=== PATIENT | male | born 1960 | race Caucasian/White ===

== ENCOUNTER 2024-09-14 19:33 | Inpatient (IN) | payer MEDICARE, OTHER ==
[~2024-09-14] VITALS: Ht 193 cm; Wt 104.2 kg
--- NOTE | 2024-09-14 19:48 | ED.PDOC ---
History of Present Illness HPI Comments 64 year old male presents to the ED via EMS with a chief complaint of generalized weakness onset 6 days. Patient was transferred from [facility] post acute due to generalized weakness for the past two weeks, positive UTI today as well as positive ESBL on urine culture. Patient states he is currently experiencing dizziness, abdominal tightness, weakness. He has a chronic Doran catheter due to urinary retention. PMHx a-fib, CHF. Denies chest pain, shortness of breath, nausea, vomiting, diarrhea, hematuria, fever, chills. No other symptoms or modifying factors present at this time. Time Seen by MD: 19:40 Reviewed Notes: Medications, Allergies Allergies: Coded Allergies: NO KNOWN ALLERGIES (Unverified , 09/14/24) Information Source: Patient Mode of Arrival: EMS Severity: Moderate Timing: Hours Duration: Since onset Prehospital treatment: None Vital Signs Vital Signs Date Time Temp Pulse Resp B/P (MAP) Pulse Ox O2 Delivery O2 Flow Rate FiO2 09/14/24 21:15 108 16 98 Room Air* 0 21 09/14/24 20:40 98.9 118/85 (96) 98.9 Physical Exam General: Awake, alert and oriented. No acute distress. Skin: Skin in warm, dry and intact. Appropriate color for ethnicity. HEENT: The head is normocephalic and atraumatic. Conjunctivae are clear without exudates or hemorrhage. Sclera is non-icteric. EOM are intact. No signs of nystagmus. Eyelids are normal in appearance without swelling or lesions. Oral mucosa is pink and moist Neck: The neck is supple with normal range of motion. No JVD. Cardiac: Heart rate and rhythm are normal. No murmurs, gallops, or rubs are auscultated. Respiratory: No signs of respiratory distress. Lung sounds are clear in all lobes bilaterally without rales, rhonchi, or wheezes. Abdominal: Abdomen is soft, positive suprapubic tenderness without distention. Bowel sounds are present and normoactive in all four quadrants. Extremities: Upper and lower extremities are atraumatic in appearance without deformity or edema. Neurological: The patient is awake, alert and oriented to person, place, and time with normal speech. Speech is clear. There is no facial asymmetry. Psychiatric: Appropriate mood and affect. Good judgement and insight. Review of Systems: REVIEW OF SYSTEMS: No fever, no chills, or fatigue, positive weight loss HEENT: No sore throat, no earache, no congestion, no neck pain. Cardiac: No chest pain. No palpitations. Lungs: No shortness of breath, no cough. GI: No nausea, no vomiting, no diarrhea, no constipation, no abdominal pain : No dysuria, frequency, or urgency. No hematuria. Musculoskeletal: No joint pain , no joint swelling, no extremity edema. Skin: No rash, no itching. Neuro: No headache, positive lightheadedness, positive generalized weakness Past Medical History PAST MEDICAL HISTORY: AFIB, CHF Surgical History: Denies all surgeries Family History Family History: Reviewed,noncontributory to illness, No family hx of Cancer, No family hx of DM, No family hx of Heart robel, No family hx of HTN, No family hx ofKidney robel, No family hx of Liver robel, No family hx of Lung robel, No family hx of Stroke Social History Smoker: Non-Smoker Alcohol: Denies ETOH Use Drugs: Denies Drug Use Lives In: Home Was a procedure done? Was a procedure done?: No Differential Dx Considerations may include: Differential diagnoses considered include: Abdominal aortic aneurysm, ND, esophageal rupture, intestinal obstruction, mesenteric ischemia, perforated viscus or solid organ rupture, CHF with hepatomegaly, pneumonia, abscess, appendicitis, biliary disease, diverticulitis, gastritis, gastroenteritis, hepatitis, hernia, inflammatory bowel disease, pancreatitis, peptic ulcer disease, urinary tract infection, ureteral colic, constipation, GERD, irritable syndrome, abdominal wall pain, nonspecific abdominal pain, herpes zoster. X-Ray, Labs, Meds, VS Vital Signs Date Time Temp Pulse Resp B/P (MAP) Pulse Ox O2 Delivery O2 Flow Rate FiO2 09/14/24 21:15 108 16 98 Room Air* 0 21 09/14/24 20:40 98.9 108 16 118/85 (96) 98 98.9 09/14/24 19:33 98.1 100 20 135/83 (100) 95 98.1 Lab Test 09/14/24 20:08 09/14/24 19:55 Range/Units Urine Color Yellow Yellow Urine Clarity Clear Clear Urine pH 6.0 5.0-9.0 Urine Specific [place] 1.012 1.001-1.035 Urine Protein Negative Negative Urine Ketones Negative Negative Urine Blood 2+ H Negative /uL Urine Nitrite Negative Negative Urine Bilirubin Negative Negative Urine Urobilinogen 2 H Negative mg/dL Urine Leukocyte Esterase 3+ Negative /uL Urine RBC 26 0 - 3 /hpf Urine Microscopic WBC 48 H 0-3 /HPF Urine Squamous Epithelial Cells Few <5 /hpf Urine Bacteria Few H None Seen /hpf Urine Mucus Few None Seen Urine Glucose 4+ H Normal mg/dL White Blood Count 11.5 H 4.4-10.8 10^3/uL Red Blood Count 5.07 4.5-5.90 10^6/uL Hemoglobin 14.9 13.5-17.5 g/dL Hematocrit 43.0 41.0-53.0 % Mean Corpuscular Volume 84.8 80.0-100.0 fL Mean Corpuscular Hemoglobin 29.4 28.0-32.0 pg Mean Corpuscular Hemoglobin Concent 34.7 32.0-36.0 g/dL Red Cell Distribution Width 14.6 H 11.8-14.3 % Platelet Count 351 140-450 10^3/uL Mean Platelet Volume 6.2 L 6.9-10.8 fL Neutrophils (%) (Auto) 76.2 37.0-80.0 % Lymphocytes (%) (Auto) 15.2 10.0-50.0 % Monocytes (%) (Auto) 7.2 0.0-12.0 % Eosinophils (%) (Auto) 0.9 0.0-7.0 % Basophils (%) (Auto) 0.5 0.0-2.0 % Neutrophils # (Auto) 8.7 H 1.6-8.6 10 ^3/uL Lymphocytes # (Auto) 1.7 0.4-5.4 10 ^3/uL Monocytes # (Auto) 0.8 0-1.3 10 ^3/uL Eosinophils # (Auto) 0.1 0-0.8 10 ^3/uL Basophils # (Auto) 0.1 0-0.2 10 ^3/uL Nucleated Red Blood Cells 0.1 % Sodium Level 137 136-145 mmol/L Potassium Level 4.0 3.5-5.1 mmol/L Chloride Level 97 L 98-107 mmol/L Carbon Dioxide Level 31 20-31 mmol/L Anion Gap 9 5-15 Blood Urea Nitrogen 12 9-23 mg/dL Creatinine 0.73 0.700-1.30 mg/dL Glomerular Filtration Rate Calc 100 >90 mL/min BUN/Creatinine Ratio 16.4 10.0-20.0 Serum Glucose 101 74-106 mg/dL Lactic Acid Level 1.3 0.4-2.0 mmol/L Calcium Level 10.4 8.7-10.4 mg/dL Total Bilirubin 1.0 0.2-1.0 mg/dL Aspartate Amino Transferase (AST) 23 13-40 U/L Alanine Aminotransferase (ALT) 22 7-40 U/L Alkaline Phosphatase 139 H 46-116 U/L Total Protein 7.0 5.7-8.2 g/dL Albumin 4.4 3.2-4.8 g/dL Current Medications Medications (Trade) Dose Ordered Sig/Sarah Route Start Time Stop Time Status Last Admin Sodium Chloride 1,000 ml @ 1,000 mls/hr Q1H ONCE IV 09/14/24 21:15 09/14/24 22:14 DC 09/14/24 21:43 Time of 1ST Reevaluation: 20:10 Reevaluation 1ST: Unchanged Patient Education/Counseling: Other (Need for admission) Family Education/Counseling: No Family Present Departure 1 Departure Time of Disposition: 00:19 Impression: Primary Impression: Urinary tract infection Additional Impression: Generalized weakness Disposition: ADMITTED INPATIENT Condition: Stable Comments 64-year-old male with generalized weakness and urinary tract infection. Patient's urine culture has been growing ESBL resistant bacteria. He has failed outpatient antibiotic Patient admitted to hospitalist service for further treatment, evaluation and monitoring. Extensive evaluation was performed in attempt to identify or rule out: (See differential diagnosis section) The following tests were ordered, and results were reviewed by me and discussed with patient: (See diagnostic results section) The following test were independently interpreted by me: N/A I reviewed and agreed with the following test results read by other providers: N/A I reviewed the following notes from the pt's past medical encounters: N/A Additional information was gathered from interviewing the following independent historians: N/A Discussion of management or test interpretation with external physician/other qualified health customer care voice consultant: Dr. Mcclain Addressed an acute or chronic illness that poses a threat to life or bodily function: Uncontrolled UTI Decision regarding hospitalization or escalation of hospital level of care: Risk and benefits of admission for further treatment of patient's condition was considered. Due to patient's current clinical condition, high risk of decline and poor outcome if discharged and need for further inpatient management and monitoring, patient will be admitted to the hospital. Drug therapy requiring intensive monitoring for toxicity: N/A Parenteral controlled substances: N/A Decision regarding elective major surgery with identified patient or procedure risk factors: N/A Decision regarding emergency major surgery: N/A Decision not to resuscitate or to de-escalate care because of poor prognosis: N/A Diagnosis or treatment significantly limited by social determinants of health: N/A Critical Care Note Critical Care Time?: No Stability Stability form required: No I personally scribed for VIOLET DING MD ([email or web address]) on 09/14/24 at 19:48. Electronically submitted by Lilo Gallagher ([email or web address]). VIOLET DING MD September 14, 2024 19:48
[2024-09-14 20:17] LABS: Basophils # (auto) 0.1 10 ^3/uL (0-0.2); Basophils % (auto) 0.5 % (0.0-2.0); Eosinophils # (auto) 0.1 10 ^3/uL (0-0.8); Eosinophils % (auto) 0.9 % (0.0-7.0); Hemoglobin 14.9 g/dL (13.5-17.5); Lymphocytes # (auto) 1.7 10 ^3/uL (0.4-5.4); Lymphocytes % (auto) 15.2 % (10.0-50.0); Mean Corpuscular Hemoglobin 29.4 pg (28.0-32.0); Mean Corpuscular Hgb Conc. 34.7 g/dL (32.0-36.0); Mean Corpuscular Volume 84.8 fL (80.0-100.0); Monocytes # (auto) 0.8 10 ^3/uL (0-1.3); Monocytes % (auto) 7.2 % (0.0-12.0); Neutrophils # (auto) 8.7 10 ^3/uL (1.6-8.6); Neutrophils % (auto) 76.2 % (37.0-80.0); Nucleated Red Blood Cells % 0.1 %; Platelet Count (auto) 351 10^3/uL (140-450); Red Blood Cells 5.07 10^6/uL (4.5-5.90); Red Cell Distribution Width 14.6 % (11.8-14.3); White Blood Cell 11.5 10^3/uL (4.4-10.8)
[2024-09-14 20:22] LABS: Urine Bacteria FEW /hpf (None Seen); Urine Blood 2+ /uL (Negative); Urine Clarity Clear (Clear); Urine Color Yellow (Yellow); Urine Mucus FEW (None Seen); Urine Protein, UAD Negative (Negative); Urine Specific Gravity 1.012 (1.001-1.035); Urine Squamous Epithelial Cell FEW /hpf (<5); Urine Urobilinogen 2 mg/dL (Negative); Urine WBC 48 /HPF (0-3)
[2024-09-14 20:31] LABS: Alanine Aminotransferase 22 U/L (7-40); Albumin 4.4 g/dL (3.2-4.8); Anion Gap 9 (5-15); Aspartate Aminotransferase 23 U/L (13-40); BUN/Creatinine Ratio 16.4 (10.0-20.0); Blood Urea Nitrogen 12 mg/dL (9-23); Carbon Dioxide 31 mmol/L (20-31); Glucose 101 mg/dL (74-106); Sodium 137 mmol/L (136-145)
[2024-09-14 20:34] LABS: Alkaline Phosphatase 139 U/L (46-116); Calcium 10.4 mg/dL (8.7-10.4); Chloride 97 mmol/L (98-107)
[2024-09-14 21:15] VITALS: PULSE 108; RESP 16; O2SAT 98
[2024-09-14] MEDS ORDERED: MORPHINE SULFATE INJ 2 MG/ml SYRG IV PRN (21:30)
[2024-09-14] MEDS ORDERED: NITROGLYCERIN 0.4 MG SL TAB SL PRN (21:30)
--- NOTE | 2024-09-14 21:35 | DVHHP2 ---
Admitting Diagnosis: uti/sepsis with uti, failure to thrive History of Present Illness HPI 64 year old male presents to the ED via EMS with a chief complaint of generalized weakness onset 6 days. Patient was transferred from [facility] post acute due to generalized weakness for the past two weeks, positive UTI today as well as positive ESBL on urine culture. Patient states he is currently experiencing dizziness, abdominal tightness, weakness. He has a chronic Doran catheter due to urinary retention. PMHx a-fib, CHF. Denies chest pain, shortness of breath, nausea, vomiting, diarrhea, hematuria, fever, chills. No other symptoms or modifying factors present at this time. Home Meds No Active Prescriptions or Reported Meds Review of Systems Constitutional: No symptom reported Ears, Nose, & Throat: No symptom reported Eyes: No symptom reported Pulmonary/Respiratory: No symptom reported Cardiovascular: No symptom reported Gastrointestinal: No symptom reported H&P Exam Vital Signs Vital Signs Date Time Temp Pulse Resp B/P (MAP) Pulse Ox O2 Delivery O2 Flow Rate FiO2 09/14/24 21:15 108 16 98 Room Air* 0 21 09/14/24 20:40 98.9 118/85 (96) 98.9 General Appeara: Thin Nasal Exam: Normal inspection Abdominal Exam: Normal bowel sounds Labs/Xrays Labs Test 09/14/24 20:08 09/14/24 19:55 Range/Units Urine Color Yellow Yellow Urine Clarity Clear Clear Urine pH 6.0 5.0-9.0 Urine Specific [place] 1.012 1.001-1.035 Urine Protein Negative Negative Urine Ketones Negative Negative Urine Blood 2+ H Negative /uL Urine Nitrite Negative Negative Urine Bilirubin Negative Negative Urine Urobilinogen 2 H Negative mg/dL Urine Leukocyte Esterase 3+ Negative /uL Urine RBC 26 0 - 3 /hpf Urine Microscopic WBC 48 H 0-3 /HPF Urine Squamous Epithelial Cells Few <5 /hpf Urine Bacteria Few H None Seen /hpf Urine Mucus Few None Seen Urine Glucose 4+ H Normal mg/dL White Blood Count 11.5 H 4.4-10.8 10^3/uL Red Blood Count 5.07 4.5-5.90 10^6/uL Hemoglobin 14.9 13.5-17.5 g/dL Hematocrit 43.0 41.0-53.0 % Mean Corpuscular Volume 84.8 80.0-100.0 fL Mean Corpuscular Hemoglobin 29.4 28.0-32.0 pg Mean Corpuscular Hemoglobin Concent 34.7 32.0-36.0 g/dL Red Cell Distribution Width 14.6 H 11.8-14.3 % Platelet Count 351 140-450 10^3/uL Mean Platelet Volume 6.2 L 6.9-10.8 fL Neutrophils (%) (Auto) 76.2 37.0-80.0 % Lymphocytes (%) (Auto) 15.2 10.0-50.0 % Monocytes (%) (Auto) 7.2 0.0-12.0 % Eosinophils (%) (Auto) 0.9 0.0-7.0 % Basophils (%) (Auto) 0.5 0.0-2.0 % Neutrophils # (Auto) 8.7 H 1.6-8.6 10 ^3/uL Lymphocytes # (Auto) 1.7 0.4-5.4 10 ^3/uL Monocytes # (Auto) 0.8 0-1.3 10 ^3/uL Eosinophils # (Auto) 0.1 0-0.8 10 ^3/uL Basophils # (Auto) 0.1 0-0.2 10 ^3/uL Nucleated Red Blood Cells 0.1 % Sodium Level 137 136-145 mmol/L Potassium Level 4.0 3.5-5.1 mmol/L Chloride Level 97 L 98-107 mmol/L Carbon Dioxide Level 31 20-31 mmol/L Anion Gap 9 5-15 Blood Urea Nitrogen 12 9-23 mg/dL Creatinine 0.73 0.700-1.30 mg/dL Glomerular Filtration Rate Calc 100 >90 mL/min BUN/Creatinine Ratio 16.4 10.0-20.0 Serum Glucose 101 74-106 mg/dL Lactic Acid Level 1.3 0.4-2.0 mmol/L Calcium Level 10.4 8.7-10.4 mg/dL Total Bilirubin 1.0 0.2-1.0 mg/dL Aspartate Amino Transferase (AST) 23 13-40 U/L Alanine Aminotransferase (ALT) 22 7-40 U/L Alkaline Phosphatase 139 H 46-116 U/L Total Protein 7.0 5.7-8.2 g/dL Albumin 4.4 3.2-4.8 g/dL Assessment/Plan Primary Diagnosis sepsis with UTI (ESBL) failure to thrive chronic systolic heart failure: echo afib: ekg, tele bph gallstones admitted to med/surg consult as appropriate PT/OT Plan discussed with: Patient PRIYA BARLOW DO September 14, 2024 21:35
[2024-09-14] MEDS: SODIUM CHLORIDE 0.9% 1,000 ML IV ONE (21:43)
[2024-09-14 22:29] LABS: COVID19 ANTIGEN SOFIA FIA NEGATIVE (NEGATIVE); Rapid Influenza A Negative (Negative); Rapid Influenza B Negative (Negative)
[2024-09-15 04:11] LABS: Basophils # (auto) 0 10 ^3/uL (0-0.2); Basophils % (auto) 0.5 % (0.0-2.0); Eosinophils # (auto) 0.2 10 ^3/uL (0-0.8); Hematocrit 43.8 % (41.0-53.0); Hemoglobin 14.7 g/dL (13.5-17.5); Lymphocytes % (auto) 21.9 % (10.0-50.0); Mean Corpuscular Hemoglobin 28.5 pg (28.0-32.0); Mean Corpuscular Hgb Conc. 33.5 g/dL (32.0-36.0); Monocytes # (auto) 0.6 10 ^3/uL (0-1.3); Monocytes % (auto) 6.8 % (0.0-12.0); Neutrophils # (auto) 6.4 10 ^3/uL (1.6-8.6); Neutrophils % (auto) 68.8 % (37.0-80.0); Nucleated Red Blood Cells % 0.1 %; Platelet Count (auto) 360 10^3/uL (140-450); Red Blood Cells 5.16 10^6/uL (4.5-5.90); Red Cell Distribution Width 14.8 % (11.8-14.3); White Blood Cell 9.3 10^3/uL (4.4-10.8)
[2024-09-15] MEDS: HYDROcodone-ACET 5/325MG TAB PO PRN (08:03)
[2024-09-15] MEDS: ENOXAPARIN SOD 40 MG/0.4 ML SYRINGE SC SCH (08:07)
[2024-09-15] MEDS: cefTRIAXone 1GM/50ML D5W 50 ML IV SCH (09:57)
--- NOTE | 2024-09-15 12:53 | DVH ---
EXAM: CT CT AB PEL WO CON-NO ORAL OR IV HISTORY: Lower abdominal pain, urinary tract infection COMPARISON: None TECHNIQUE: Helical CT images of the abdomen and pelvis were performed without IV contrast. Sagittal a nd coronal reformatted images were obtained. This CT exam was performed using one or more of the foll owing dose reduction techniques: Automated exposure control, adjustment of the mA and/or kv according to patient size, or the use of iterative reconstruction techniques. Radiation Dose: Abdomen/Pelvis: CTDIvol 21.31 mGy, DLP 1357.79 mGy*cm. FINDINGS: CT abdomen: There is a small left pleural effusion. There is partial consolidation of the left lower lobe, not fully imaged here. The heart is borderline enlarged. There are coronary artery calcificatio ns. There is a 3.2 cm gallstone (image 25, series 5). The noncontrast liver, spleen, pancreas, kidney s, and adrenal glands are unremarkable. No abdominal aortic aneurysm. There is a small distal duodena l diverticulum. CT pelvis: No abnormal bowel dilatation, free air, or free fluid. There is fecal retention in the col on. The appendix is not definitely visualized, and there is no specific evidence of acute appendiciti s. Doran catheter decompresses the urinary bladder. The prostate is moderately enlarged. There are small bilateral fatty inguinal indirect hernias. There are bilateral sacroiliac degenerative changes with bridging osteophytes anteriorly on both sides. There is advanced lumbar degenerative disc diseas e and facet arthropathy with multilevel significant neural foraminal stenosis bilaterally. There is m ild osteoarthritis of the hips. IMPRESSION: 1. Small left pleural effusion with left lower lobe partial consolidation which may be due to scarrin g, pneumonia, or atelectasis. Comparison with previous imaging would be necessary to make this disti nction. 2. Coronary artery disease and Borderline cardiomegaly. 3. Cholelithiasis. 4. Fecal retention in the colon suggestive of constipation. 5. Moderate prostatic enlargement. Doran catheter decompresses the urinary bladder. 6. Advanced lumbar degenerative disc disease and facet arthropathy with multilevel significant neural foraminal stenosis bilaterally. This would be better characterized with noncontrast MRI of the lumb ar spine on an outpatient nonemergent basis, especially if the patient complains of lower extremity r adicular symptoms. 7. No evidence of bowel obstruction or other acute process in the abdomen or pelvis.
[2024-09-15] MEDS ORDERED: DOCUSATE SOD 100 MG CAP PO PRN (13:30)
--- NOTE | 2024-09-15 13:33 | DVHPN2 ---
Progress Note Date Seen: September 15, 2024 Medical Necessity Reason Pt with a Central, PICC or Fol: Yes The following are medically ne: Stevens Catheter Reason for stevens catheter: Bladder Retention/Obstruc, Strict I&O Subjective Patient reports: No new complaints Review of Systems: HEENT:Normal, CVS:Normal, RESPIRATORY:Normal, GI:Normal, :Normal, MSK:Normal, NEURO:Normal Objective vital signs Vital Sign Date Time Temp Pulse Resp B/P (MAP) Pulse Ox O2 Delivery O2 Flow Rate FiO2 09/15/24 12:00 86 13 123/84 (97) 96 09/15/24 07:39 Room Air* 0 21 09/15/24 07:39 97.7 97.7 Total Intake and Output 09/14/24 09/14/24 09/15/24 15:00 23:00 07:00 Intake Total 1000 ml Balance 1000 ml medications Current Medications Medications Dose Ordered Sig/Sarah Route Start Time Stop Time Status Last Admin Dose Admin Acetaminophen/ Hydrocodone Bitart 1 tab Q4HP PRN PO 09/14/24 21:30 09/15/24 08:03 1 TAB Acetaminophen 650 mg Q6HP PRN PO 09/14/24 21:30 Morphine Sulfate 2 mg Q4HPRN PRN IV 09/14/24 21:30 Enoxaparin Sodium 40 mg DAILY SC 09/15/24 08:00 09/15/24 08:07 40 MG Nitroglycerin 0.4 mg Q5MINP PRN SL 09/14/24 21:30 Morphine Sulfate 2 mg Q30M PRN IV 09/14/24 21:30 Ceftriaxone Sodium 50 ml @ 100 mls/hr DAILY IV 09/15/24 10:00 09/15/24 09:57 100 MLS/HR Examination: GENERAL:Normal, HEENT:Normal, NECK:Normal, LUNGS:Normal, CVS:Normal, ABDOMEN:Normal, MSK:Normal, SKIN:Normal, NEURO:Normal, :Normal laboratory and microbiology Laboratory Tests 09/15/24 03:39 09/14/24 19:55 Test 09/14/24 19:55 Range/Units Serum Glucose 101 74-106 mg/dL Problem List/Assessment/Plan Problem List/Assessment/Plan #1 ? sepsis with uti ? esbl: iv invanz, change stevens #2 chronic systolic heart failure: echo #3 ? afib: ekg, tele #4 bph #5 gallstones advance care planning- full code- time spent 19 mins Plan discussed with: Patient Date of Service: September 15, 2024 Billing Provider: PERLITA MOORE MD Common Visit Codes: [id number] INP/OBS CARE(HIGH) Secondary Visit Codes: [id number] CARE PLAN 30 MINUTES PERLITA MOORE MD September 15, 2024 13:33
--- NOTE | 2024-09-15 13:56 | DVH ---
EXAM: XY CHEST PORTABLE Indication: chf Technique: Single frontal view of the chest was obtained Comparison: None FINDINGS: Lines and Tubes: None Lungs: No focal consolidation. Pleura: Small left pleural effusion. No pneumothorax. Cardiomediastinal contours: Cardiomegaly Bones: No acute osseous abnormality. IMPRESSION: Cardiomegaly with small left pleural effusion
[2024-09-15] MEDS: ERTAPENEM SOD INJ 1 GM in SODIUM CHL 0.9% 50 ML IV ONE (14:00)
[2024-09-15 17:23] VITALS: BP 128/83; PULSE 101; RESP 20; TEMP 97.4; O2SAT 94
[2024-09-15 17:58] VITALS: PULSE 101; RESP 20; O2SAT 94
[2024-09-15 21:00] VITALS: BP 121/81; PULSE 101; RESP 17; TEMP 97.6; O2SAT 96
[2024-09-15] MEDS: ACETAMINOPHEN 325 MG TAB PO PRN (23:18)
[2024-09-15] MEDS: CARVEDILOL 3.125 MG TAB PO SCH (23:21)
[2024-09-16] VITALS (8 sets, daily range): BP systolic 101–142; BP diastolic 67–94; PULSE 54–109; RESP 12–21; TEMP 97.5–98.4; O2SAT 97–98
[2024-09-16 05:18] LABS: Basophils # (auto) 0.1 10 ^3/uL (0-0.2); Eosinophils # (auto) 0.2 10 ^3/uL (0-0.8); Eosinophils % (auto) 2.1 % (0.0-7.0); Hematocrit 42.4 % (41.0-53.0); Hemoglobin 14.5 g/dL (13.5-17.5); Lymphocytes # (auto) 1.8 10 ^3/uL (0.4-5.4); Lymphocytes % (auto) 21.2 % (10.0-50.0); Mean Corpuscular Hemoglobin 28.8 pg (28.0-32.0); Mean Corpuscular Hgb Conc. 34.1 g/dL (32.0-36.0); Mean Corpuscular Volume 84.6 fL (80.0-100.0); Monocytes # (auto) 0.7 10 ^3/uL (0-1.3); Monocytes % (auto) 7.6 % (0.0-12.0); Neutrophils % (auto) 68.1 % (37.0-80.0); Platelet Count (auto) 350 10^3/uL (140-450); Red Blood Cells 5.01 10^6/uL (4.5-5.90); Red Cell Distribution Width 14.3 % (11.8-14.3); White Blood Cell 8.7 10^3/uL (4.4-10.8)
[2024-09-16 05:42] LABS: Alanine Aminotransferase 14 U/L (7-40); Albumin 4.1 g/dL (3.2-4.8); Alkaline Phosphatase 105 U/L (46-116); Anion Gap 10 (5-15); Aspartate Aminotransferase 16 U/L (13-40); BUN/Creatinine Ratio 17.5 (10.0-20.0); Bilirubin, Total 0.8 mg/dL (0.2-1.0); Blood Urea Nitrogen 11 mg/dL (9-23); Calcium 9.5 mg/dL (8.7-10.4); Carbon Dioxide 28 mmol/L (20-31); Chloride 101 mmol/L (98-107); Glucose 94 mg/dL (74-106); Potassium 3.7 mmol/L (3.5-5.1); Sodium 139 mmol/L (136-145); Total Protein 6.7 g/dL (5.7-8.2)
[2024-09-16 06:07] LABS: INR 1.09 (0.9-1.15); Partial Thromboplastin Time 33.9 SEC (24.5-34.5); Prothrombin Time 11.5 sec (9.3-11.8)
[2024-09-16] MEDS: MORPHINE SULFATE INJ 2 MG/ml SYRG IV PRN (09:38)
[2024-09-16] MEDS: ASPirin 81 mg TAB PO SCH (09:40)
[2024-09-16] MEDS: ERTAPENEM SOD INJ 1 GM in SODIUM CHL 0.9% 50 ML IV SCH (09:43)
[2024-09-16 10:16] LABS: Hepatitis B Surface Antigen Negative (Negative)
[2024-09-16 10:40] LABS: Hepatitis A Ab IgM Negative; Hepatitis B Core IgM Negative (Negative); Hepatitis C Antibody Negative (Negative)
[2024-09-16] MEDS ORDERED: SENNA 8.6 MG TAB PO PRN (14:15)
[2024-09-17] VITALS (8 sets, daily range): BP systolic 107–142; BP diastolic 65–88; PULSE 80–102; RESP 17–20; TEMP 97.5–98.5; O2SAT 96–98
[2024-09-17 05:45] LABS: Urine Bacteria None Seen /hpf (None Seen)
[2024-09-17 05:50] LABS: Urine Blood 1+ /uL (Negative); Urine Budding Yeast OCCASIONAL /hpf (None Seen); Urine Clarity Clear (Clear); Urine Color Yellow (Yellow); Urine Mucus FEW (None Seen); Urine Protein, UAD Negative (Negative); Urine Specific Gravity 1.022 (1.001-1.035); Urine Squamous Epithelial Cell None Seen /hpf (<5); Urine Urobilinogen 4 mg/dL (Negative); Urine WBC 9 /HPF (0-3)
--- NOTE | 2024-09-17 13:12 | DVHPN2 ---
Assessment/Plan My Orders Orders - SREEDHAR LOPEZ MD Procedure Category Date Status Time Senna Pod Tablet PHA 09/16/24 In Process (Senokot Tablet) 14:15 Polyethylene Glycol PHA 09/16/24 In Process 17g Powder (Miralax 14:15 Date of Service: September 16, 2024 Billing Provider: SREEDHAR LOPEZ MD Common Visit Codes: [id number] INP/OBS CARE(HIGH) SREEDHAR LOPEZ MD September 17, 2024 13:12
--- NOTE | 2024-09-17 13:13 | DVHPN2 ---
Assessment/Plan My Orders Orders - SREEDHAR LOPEZ MD Procedure Category Date Status Time Senna Pod Tablet PHA 09/16/24 In Process (Senokot Tablet) 14:15 Polyethylene Glycol PHA 09/16/24 In Process 17g Powder (Miralax 14:15 Date of Service: September 17, 2024 SREEDHAR LOPEZ MD September 17, 2024 13:13
[2024-09-17] MEDS ORDERED: VANCOMYCIN PER PHARMACY 0 MG IV SCH (13:15)
--- NOTE | 2024-09-17 14:45 | DVHPN2 ---
Subjective less confused, no complaints, pending cult and sens Changes from previous H/P or p: No Changes Objective Vitals Vital Signs Date Time Temp Pulse Resp B/P (MAP) Pulse Ox O2 Delivery O2 Flow Rate FiO2 09/17/24 14:34 86 18 112/75 09/17/24 14:32 98.0 09/17/24 12:10 96 09/17/24 08:05 Room Air* 0 21 Intake/Output Intake and Output 09/17/24 07:00 Intake Total 1500 ml Output Total 1500 ml Balance 0 ml Intake Oral 1500 ml Output Urine Total 1500 ml Medications Current Medications Medications Dose Ordered Sig/Sarah Route Start Time Stop Time Status Last Admin Dose Admin Acetaminophen/ Hydrocodone Bitart 1 tab Q4HP PRN PO 09/14/24 21:30 09/17/24 04:08 1 TAB Acetaminophen 650 mg Q6HP PRN PO 09/14/24 21:30 09/17/24 14:32 650 MG Morphine Sulfate 2 mg Q4HPRN PRN IV 09/14/24 21:30 09/17/24 14:34 2 MG Enoxaparin Sodium 40 mg DAILY SC 09/15/24 08:00 09/17/24 09:28 40 MG Nitroglycerin 0.4 mg Q5MINP PRN SL 09/14/24 21:30 Morphine Sulfate 2 mg Q30M PRN IV 09/14/24 21:30 Ertapenem 1 gm/ Sodium Chloride 50 ml @ 100 mls/hr DAILY IV 09/16/24 10:00 09/17/24 09:29 100 MLS/HR Aspirin 81 mg DAILY PO 09/16/24 10:00 09/17/24 09:28 81 MG Carvedilol 3.125 mg Q12HR PO 09/15/24 22:00 09/17/24 09:29 3.125 MG Sennosides 8.6 mg QHSP PRN PO 09/16/24 14:15 Polyethylene Glycol 17 gm DAILYPRN PRN PO 09/16/24 14:15 Vancomycin HCl 0 ml @ 0 mls/hr UD IV 09/17/24 13:15 Vancomycin HCl 200 ml @ 160 mls/hr Q12H IV 09/17/24 15:00 Laboratory Results Laboratory Tests 09/16/24 04:50 Urinalysis Test 09/17/24 05:30 Urine Color Yellow (Yellow) Urine Clarity Clear (Clear) Urine pH 6.0 (5.0-9.0) Urine Specific [place] 1.022 (1.001-1.035) Urine Protein Negative (Negative) Urine Ketones Negative (Negative) Urine Blood 1+ /uL (Negative) H Urine Nitrite Negative (Negative) Urine Bilirubin Negative (Negative) Urine Urobilinogen 4 mg/dL (Negative) H Urine Leukocyte Esterase 1+ /uL (Negative) Urine RBC 94 /hpf (0 - 3) Urine Microscopic WBC 9 /HPF (0-3) H Urine Squamous Epithelial Cells None seen /hpf (<5) Urine Bacteria None seen /hpf (None Seen) Urine Mucus Few (None Seen) Urine Yeast (Budding) Occasional /hpf (None Urine Glucose 3+ mg/dL (Normal) H Microbiology Microbiology Date/Time Source Procedure Growth Status 09/14/24 20:08 Urine - [place] Urine Culture - Preliminary Resulted 09/14/24 19:55 Blood Blood Culture - Preliminary NO GROWTH AFTER 48 HOURS OF INCUBATION. Resulted Assessment/Plan Assessment/Plan #1 ? sepsis with uti ? esbl: iv invanz, change stevens #2 chronic systolic heart failure: echo #3 ? afib: ekg, tele #4 bph #5 gallstones advance care planning- full code- time spent 19 mins Plan discussed with: Patient My Orders Orders - SEREDHAR LOPEZ MD Procedure Category Date Status Time Vancomycin Per PHA 09/17/24 In Process Pharmacy 13:15 Vancomycin 1gm/200ml PHA 09/17/24 In Process Pm 15:00 Complete Blood Count LAB 09/18/24 Verified 04:00 Creatinine LAB 09/18/24 Verified 04:00 Vancomycin,Trough LAB 09/19/24 Verified 02:00 Vancomycin Per BIJAN 09/17/24 In Process Pharmacy Protoc 13:58 Date of Service: September 16, 2024 Billing Provider: SREEDHAR LOPEZ MD Common Visit Codes: [id number] INP/OBS CARE(HIGH) SREEDHAR LOPEZ MD September 17, 2024 14:45
--- NOTE | 2024-09-17 14:46 | DVHPN2 ---
Subjective aox4. urine with 20kcfu of enterococcus, pending sens, adding vanc to cover Changes from previous H/P or p: No Changes Objective Vitals Vital Signs Date Time Temp Pulse Resp B/P (MAP) Pulse Ox O2 Delivery O2 Flow Rate FiO2 09/17/24 14:34 86 18 112/75 09/17/24 14:32 98.0 09/17/24 12:10 96 09/17/24 08:05 Room Air* 0 21 Intake/Output Intake and Output 09/17/24 07:00 Intake Total 1500 ml Output Total 1500 ml Balance 0 ml Intake Oral 1500 ml Output Urine Total 1500 ml Medications Current Medications Medications Dose Ordered Sig/Sarah Route Start Time Stop Time Status Last Admin Dose Admin Acetaminophen/ Hydrocodone Bitart 1 tab Q4HP PRN PO 09/14/24 21:30 09/17/24 04:08 1 TAB Acetaminophen 650 mg Q6HP PRN PO 09/14/24 21:30 09/17/24 14:32 650 MG Morphine Sulfate 2 mg Q4HPRN PRN IV 09/14/24 21:30 09/17/24 14:34 2 MG Enoxaparin Sodium 40 mg DAILY SC 09/15/24 08:00 09/17/24 09:28 40 MG Nitroglycerin 0.4 mg Q5MINP PRN SL 09/14/24 21:30 Morphine Sulfate 2 mg Q30M PRN IV 09/14/24 21:30 Ertapenem 1 gm/ Sodium Chloride 50 ml @ 100 mls/hr DAILY IV 09/16/24 10:00 09/17/24 09:29 100 MLS/HR Aspirin 81 mg DAILY PO 09/16/24 10:00 09/17/24 09:28 81 MG Carvedilol 3.125 mg Q12HR PO 09/15/24 22:00 09/17/24 09:29 3.125 MG Sennosides 8.6 mg QHSP PRN PO 09/16/24 14:15 Polyethylene Glycol 17 gm DAILYPRN PRN PO 09/16/24 14:15 Vancomycin HCl 0 ml @ 0 mls/hr UD IV 09/17/24 13:15 Vancomycin HCl 200 ml @ 160 mls/hr Q12H IV 09/17/24 15:00 Laboratory Results Laboratory Tests 09/16/24 04:50 Urinalysis Test 09/17/24 05:30 Urine Color Yellow (Yellow) Urine Clarity Clear (Clear) Urine pH 6.0 (5.0-9.0) Urine Specific [place] 1.022 (1.001-1.035) Urine Protein Negative (Negative) Urine Ketones Negative (Negative) Urine Blood 1+ /uL (Negative) H Urine Nitrite Negative (Negative) Urine Bilirubin Negative (Negative) Urine Urobilinogen 4 mg/dL (Negative) H Urine Leukocyte Esterase 1+ /uL (Negative) Urine RBC 94 /hpf (0 - 3) Urine Microscopic WBC 9 /HPF (0-3) H Urine Squamous Epithelial Cells None seen /hpf (<5) Urine Bacteria None seen /hpf (None Seen) Urine Mucus Few (None Seen) Urine Yeast (Budding) Occasional /hpf (None Urine Glucose 3+ mg/dL (Normal) H Microbiology Microbiology Date/Time Source Procedure Growth Status 09/14/24 20:08 Urine - [place] Urine Culture - Preliminary Resulted 09/14/24 19:55 Blood Blood Culture - Preliminary NO GROWTH AFTER 48 HOURS OF INCUBATION. Resulted Assessment/Plan Assessment/Plan #1 ? sepsis with uti ? esbl: iv invanz, change stevens, enterococcus, adding vanc #2 chronic systolic heart failure: echo #3 ? afib: ekg, tele #4 bph #5 gallstones advance care planning- full code- time spent 19 mins Plan discussed with: Patient My Orders Orders - SREEDHAR LOPEZ MD Procedure Category Date Status Time Vancomycin Per PHA 09/17/24 In Process Pharmacy 13:15 Vancomycin 1gm/200ml PHA 09/17/24 In Process Pm 15:00 Complete Blood Count LAB 09/18/24 Verified 04:00 Creatinine LAB 09/18/24 Verified 04:00 Vancomycin,Trough LAB 09/19/24 Verified 02:00 Vancomycin Per BIJAN 09/17/24 In Process Pharmacy Protoc 13:58 Date of Service: September 17, 2024 Billing Provider: SREEDHAR LOPEZ MD Common Visit Codes: [id number] INP/OBS CARE(HIGH) SREEDHAR LOPEZ MD September 17, 2024 14:46
[2024-09-17] MEDS: VANCOMYCIN 1GM/200ML PM 200 ML IV SCH (14:48)
--- NOTE | 2024-09-17 17:36 | DVHSR ---
APPROVED REPORT EXAM: Two-dimensional and M-mode echocardiogram with Doppler and color Doppler. Blood Pressure: 124/94 mmHg INDICATION chf RISK FACTORS Obesity: Height: 6'4, Weight: 213 DIMENSIONS LVDd4.8 (3.8-5.7cm)LA (2D)4.0 (1.9-4.0cm)Aortic Root3.5 (2.0-3.7cm) LVDs3.6 (2.5-4.0cm)LA (MM) (1.9-4.0cm)Aortic Cusp Exc2.0 (1.5-2.0cm) EF (%) 48.0 (55-70%)Rt. Atrium (1.9-4.0cm)Asc. Aorta3.4 cm IVSd1.1 (0.7-1.1cm)RV (D) (1.8-2.4cm) PWd1.1 (0.7-1.1cm) Mitral Valve MitralMitral Stenosis E wave0.81m/sMV Mean GR.1mmHg A wavem/sMV Peak GR.3mmHg E/A ratio0.02D MVAcm2 DECEL [id number] 1/2 [place] Aortic Valve Aortic ValveAortic Stenosis V10.84m/Osvaldo Mean GR.mmHg V20.99m/[place]valdo Peak GR.4mmHg LVOT Diameter2.7 (1.8-2.4cm)Doppler AVA4.86cm2 Pulmonic Valve V20.87m/s Other Information Quality : Technically LimitedRhythm : Technically limited study due to patient position.body habitus. Conclusion MILD LVH AND MILD LV DIASTOLIC DYSFUNCTION MILD LV GLOBAL HYPOKINESIS LV EF IS 45% AND IS BORDERLINE REDUCED MODRATELY DILATED RV AND RA DSKINESIS OF IVS RV HYPOKINETIC STUDY REVEAL BORDERLINE DILATED CARDIOMYOPATHY SYSTOLIC AND DIASTOLIC LV DYSFUNCTION NORMAL VALVES NO EFFUSION
[2024-09-18] VITALS (10 sets, daily range): BP systolic 104–129; BP diastolic 69–97; PULSE 83–102; RESP 18; TEMP 97.5–98.2; O2SAT 93–97
[2024-09-18 06:44] LABS: Basophils # (auto) 0.1 10 ^3/uL (0-0.2); Basophils % (auto) 1.5 % (0.0-2.0); Eosinophils # (auto) 0.2 10 ^3/uL (0-0.8); Eosinophils % (auto) 2.6 % (0.0-7.0); Hematocrit 43.3 % (41.0-53.0); Hemoglobin 14.6 g/dL (13.5-17.5); Lymphocytes # (auto) 2.2 10 ^3/uL (0.4-5.4); Lymphocytes % (auto) 24.3 % (10.0-50.0); Mean Corpuscular Hemoglobin 28.9 pg (28.0-32.0); Mean Corpuscular Hgb Conc. 33.8 g/dL (32.0-36.0); Mean Corpuscular Volume 85.6 fL (80.0-100.0); Monocytes # (auto) 0.6 10 ^3/uL (0-1.3); Monocytes % (auto) 6.6 % (0.0-12.0); Nucleated Red Blood Cells % 0.1 %; Platelet Count (auto) 328 10^3/uL (140-450); Red Blood Cells 5.06 10^6/uL (4.5-5.90); Red Cell Distribution Width 14.8 % (11.8-14.3); White Blood Cell 9.2 10^3/uL (4.4-10.8)
[2024-09-18 06:53] LABS: Chloride 106 mmol/L (98-107); Potassium 4.2 mmol/L (3.5-5.1); Sodium 140 mmol/L (136-145)
[2024-09-18 06:54] LABS: Anion Gap 9 (5-15); Carbon Dioxide 25 mmol/L (20-31)
[2024-09-18 06:55] LABS: Calcium 9.4 mg/dL (8.7-10.4)
[2024-09-18 06:59] LABS: BUN/Creatinine Ratio 19.7 (10.0-20.0); Blood Urea Nitrogen 12 mg/dL (9-23); Glucose 87 mg/dL (74-106)
[2024-09-18] MEDS: POLYETHYLENE GLYCOL 17 GM PWDR PO PRN (15:59)
--- NOTE | 2024-09-18 17:45 | DVHPN2 ---
Subjective carbapenem restant citrobacter and enterococcus. starting avicaz and c/w vanc. midline, plan for home iv abx Changes from previous H/P or p: No Changes Objective Vitals Vital Signs Date Time Temp Pulse Resp B/P (MAP) Pulse Ox O2 Delivery O2 Flow Rate FiO2 09/18/24 14:09 98.9 09/18/24 13:40 89 16 102/54 09/18/24 13:00 93 09/18/24 07:49 Room Air* 0 21 Intake/Output Intake and Output 09/18/24 07:00 Intake Total 2422 ml Output Total 8950 ml Balance -6528 ml Intake Oral 1972 ml IV Total 450 ml Output Urine Total 8950 ml Medications Current Medications Medications Dose Ordered Sig/Sarah Route Start Time Stop Time Status Last Admin Dose Admin Acetaminophen/ Hydrocodone Bitart 1 tab Q4HP PRN PO 09/14/24 21:30 09/17/24 21:27 1 TAB Acetaminophen 650 mg Q6HP PRN PO 09/14/24 21:30 09/18/24 13:09 650 MG Morphine Sulfate 2 mg Q4HPRN PRN IV 09/14/24 21:30 09/18/24 13:10 2 MG Enoxaparin Sodium 40 mg DAILY SC 09/15/24 08:00 09/18/24 08:32 40 MG Nitroglycerin 0.4 mg Q5MINP PRN SL 09/14/24 21:30 Aspirin 81 mg DAILY PO 09/16/24 10:00 09/18/24 08:31 81 MG Carvedilol 3.125 mg Q12HR PO 09/15/24 22:00 09/17/24 21:27 3.125 MG Sennosides 8.6 mg QHSP PRN PO 09/16/24 14:15 Polyethylene Glycol 17 gm DAILYPRN PRN PO 09/16/24 14:15 09/18/24 15:59 17 GM Vancomycin HCl 0 ml @ 0 mls/hr UD IV 09/17/24 13:15 Vancomycin HCl 200 ml @ 160 mls/hr Q12H IV 09/17/24 15:00 09/18/24 15:29 160 MLS/HR Amino Acid Protein 30 ml DAILY PO 09/19/24 10:00 Ascorbic Acid 500 mg BID PO 09/18/24 22:00 Multivitamins/ Minerals 1 tab DAILY PO 09/19/24 10:00 Patient Own Medication 1 TID PO 09/18/24 22:00 UNV Laboratory Results Laboratory Tests 09/18/24 06:30 Chemistry Test 09/18/24 06:30 Calcium Level 9.4 mg/dL (8.7-10.4) Urinalysis Test 09/17/24 05:30 Urine Color Yellow (Yellow) Urine Clarity Clear (Clear) Urine pH 6.0 (5.0-9.0) Urine Specific [place] 1.022 (1.001-1.035) Urine Protein Negative (Negative) Urine Ketones Negative (Negative) Urine Blood 1+ /uL (Negative) H Urine Nitrite Negative (Negative) Urine Bilirubin Negative (Negative) Urine Urobilinogen 4 mg/dL (Negative) H Urine Leukocyte Esterase 1+ /uL (Negative) Urine RBC 94 /hpf (0 - 3) Urine Microscopic WBC 9 /HPF (0-3) H Urine Squamous Epithelial Cells None seen /hpf (<5) Urine Bacteria None seen /hpf (None Seen) Urine Mucus Few (None Seen) Urine Yeast (Budding) Occasional /hpf (None Urine Glucose 3+ mg/dL (Normal) H Microbiology Microbiology Date/Time Source Procedure Growth Status 09/14/24 20:08 Urine - [place] Urine Culture - Final Citrobacter freundii Enterococcus faecalis Complete 09/14/24 19:55 Blood Blood Culture - Preliminary NO GROWTH AFTER 72 HOURS OF INCUBATION. Resulted Assessment/Plan Assessment/Plan #1 ? sepsis with uti ? citrobacter and enteroccocus (MDRO) start avycaz and c/w vanc place midline #2 chronic systolic heart failure: echo #3 ? afib: ekg, tele #4 bph #5 gallstones advance care planning- full code- time spent 19 mins Plan discussed with: Patient My Orders Orders - SREEDHAR LOPEZ MD Procedure Category Date Status Time Apply Barrier Cream BIJAN 09/17/24 In Process 11:37 * Dietary Consult CONS 09/17/24 Transmitted 18:57 * Wound Consult CONS 09/17/24 Transmitted Amino Acids-Protein PHA 09/19/24 In Process Hydrolysat (Pro-Stat 10:00 Ascorbic Acid Tablet PHA 09/18/24 In Process (Vitamin C Tablet) 22:00 Multiple Vitamin W PHA 09/19/24 In Process Mineral Tab (Mvi W/ M 10:00 Date of Service: September 18, 2024 Billing Provider: SREEDHAR LOPEZ MD Common Visit Codes: [id number] INP/OBS CARE(HIGH) SREEDHAR LOPEZ MD September 18, 2024 17:45
[2024-09-18] MEDS: ASCORBIC ACID 500 MG TAB PO SCH (21:00)
[2024-09-18] MEDS ORDERED: PATIENTS OWN MEDICATION PO SCH (22:00)
[2024-09-19] VITALS (8 sets, daily range): BP systolic 109–136; BP diastolic 66–91; PULSE 1–98; RESP 16–18; TEMP 97.3–98.6; O2SAT 97–100
[2024-09-19 06:53] LABS: Anion Gap 10 (5-15); Carbon Dioxide 24 mmol/L (20-31); Chloride 106 mmol/L (98-107); Potassium 4.1 mmol/L (3.5-5.1); Sodium 140 mmol/L (136-145)
[2024-09-19 06:56] LABS: Basophils # (auto) 0.1 10 ^3/uL (0-0.2); Basophils % (auto) 0.7 % (0.0-2.0); Eosinophils # (auto) 0.2 10 ^3/uL (0-0.8); Eosinophils % (auto) 2.7 % (0.0-7.0); Hematocrit 41.5 % (41.0-53.0); Hemoglobin 13.8 g/dL (13.5-17.5); Lymphocytes # (auto) 2.3 10 ^3/uL (0.4-5.4); Lymphocytes % (auto) 24.9 % (10.0-50.0); Mean Corpuscular Hemoglobin 28.6 pg (28.0-32.0); Mean Corpuscular Hgb Conc. 33.3 g/dL (32.0-36.0); Mean Corpuscular Volume 85.9 fL (80.0-100.0); Monocytes # (auto) 0.7 10 ^3/uL (0-1.3); Monocytes % (auto) 7.9 % (0.0-12.0); Neutrophils # (auto) 5.8 10 ^3/uL (1.6-8.6); Neutrophils % (auto) 63.8 % (37.0-80.0); Nucleated Red Blood Cells % 0.1 %; Platelet Count (auto) 321 10^3/uL (140-450); Red Blood Cells 4.83 10^6/uL (4.5-5.90); Red Cell Distribution Width 14.6 % (11.8-14.3); White Blood Cell 9.1 10^3/uL (4.4-10.8)
[2024-09-19 06:59] LABS: BUN/Creatinine Ratio 16.4 (10.0-20.0); Blood Urea Nitrogen 12 mg/dL (9-23); Glucose 85 mg/dL (74-106)
[2024-09-19] MEDS: MULTIPLE VITAMINS W/ MINERALS TAB PO SCH (09:34)
[2024-09-19] MEDS: Pro-Stat SF 30ml Vanilla PO SCH (10:00)
--- NOTE | 2024-09-19 10:35 | DVHDS2 ---
Discharge Summary Date of Admission September 14, 2024 at 21:28 Date of Discharge: September 19, 2024 Labs/Diagnostic Data: Laboratory Results Test 09/19/24 05:46 09/19/24 01:50 09/17/24 05:30 09/16/24 04:50 White Blood Count 9.1 10^3/uL (4.4-10.8) Red Blood Count 4.83 10^6/uL (4.5-5.90) Hemoglobin 13.8 g/dL (13.5-17.5) Hematocrit 41.5 % (41.0-53.0) Mean Corpuscular Volume 85.9 fL (80.0-100.0) Mean Corpuscular Hemoglobin 28.6 pg (28.0-32.0) Mean Corpuscular Hemoglobin Concent 33.3 g/dL (32.0-36.0) Red Cell Distribution Width 14.6 % (11.8-14.3) Platelet Count 321 10^3/uL (140-450) Mean Platelet Volume 6.3 fL (6.9-10.8) Neutrophils (%) (Auto) 63.8 % (37.0-80.0) Lymphocytes (%) (Auto) 24.9 % (10.0-50.0) Monocytes (%) (Auto) 7.9 % (0.0-12.0) Eosinophils (%) (Auto) 2.7 % (0.0-7.0) Basophils (%) (Auto) 0.7 % (0.0-2.0) Neutrophils # (Auto) 5.8 10 ^3/uL (1.6-8.6) Lymphocytes # (Auto) 2.3 10 ^3/uL (0.4-5.4) Monocytes # (Auto) 0.7 10 ^3/uL (0-1.3) Eosinophils # (Auto) 0.2 10 ^3/uL (0-0.8) Basophils # (Auto) 0.1 10 ^3/uL (0-0.2) Nucleated Red Blood Cells 0.1 % Sodium Level 140 mmol/L (136-145) Potassium Level 4.1 mmol/L (3.5-5.1) Chloride Level 106 mmol/L (98-107) Carbon Dioxide Level 24 mmol/L (20-31) Anion Gap 10 (5-15) Blood Urea Nitrogen 12 mg/dL (9-23) Creatinine 0.73 mg/dL (0.700-1.30) Glomerular Filtration Rate Calc 100 mL/min (>90) BUN/Creatinine Ratio 16.4 (10.0-20.0) Serum Glucose 85 mg/dL (74-106) Calcium Level 10.0 mg/dL (8.7-10.4) Vancomycin Level Trough 11.3 ug/mL (5-10) Urine Color Yellow (Yellow) Urine Clarity Clear (Clear) Urine pH 6.0 (5.0-9.0) Urine Specific [place] 1.022 (1.001-1.035) Urine Protein Negative (Negative) Urine Ketones Negative (Negative) Urine Blood 1+ /uL (Negative) Urine Nitrite Negative (Negative) Urine Bilirubin Negative (Negative) Urine Urobilinogen 4 mg/dL (Negative) Urine Leukocyte Esterase 1+ /uL (Negative) Urine RBC 94 /hpf (0 - 3) Urine Microscopic WBC 9 /HPF (0-3) Urine Squamous Epithelial Cells None seen /hpf (<5) Urine Bacteria None seen /hpf (None Seen) Urine Mucus Few (None Seen) Urine Yeast (Budding) Occasional /hpf (None Urine Glucose 3+ mg/dL (Normal) Prothrombin Time 11.5 sec (9.3-11.8) Prothrombin Time INR 1.09 (0.9-1.15) Activated Partial Thromboplast Time 33.9 SEC (24.5-34.5) Total Bilirubin 0.8 mg/dL (0.2-1.0) Aspartate Amino Transferase (AST) 16 U/L (13-40) Alanine Aminotransferase (ALT) 14 U/L (7-40) Alkaline Phosphatase 105 U/L (46-116) Total Protein 6.7 g/dL (5.7-8.2) Albumin 4.1 g/dL (3.2-4.8) Test 09/15/24 03:39 09/14/24 21:30 09/14/24 19:55 Hepatitis A IgM Antibody Negative Hepatitis B Surface Antigen Negative (Negative) Hepatitis B Core IgM Antibody Negative (Negative) Hepatitis C Antibody Negative (Negative) Influenza Type A Antigen Negative (Negative) Influenza Type B Antigen Negative (Negative) SARS-CoV-2 Antigen (Rapid) Negative (NEGATIVE) Lactic Acid Level 1.3 mmol/L (0.4-2.0) Other Laboratory Tests 09/19/24 05:46 Brief Hx & Hospital Course: see dictated note Condition at Discharge: Fair Final Diagnosis/Problems List uti Discharge Disposition: [facility] Discharge Instruct/Medications Diet: Consistent carbohydrate, Cardiac 2g Na,low cholest Activity: No Restrictions, As Tolerated Follow Up/Referral: fu with dr Mcclain Medications: per tyler chey in Discharge Statement: "Patient was advised to return to the ER or call 911 if any headaches, dizziness, shortness of breath, chest pain, abdominal pain, bleeding, fevers, or worsening of medical condition. Patient was counseled about treatment plan, medications, possible side effects, patientverbalized understanding. All questions were answered to the best of my ability. This discharge took greater then 30 minutes in planning, reviewing documentation, counseling the patient, and discussing with other team members." ASSESSMENT ASSESSMENT Assessment uti Date of Service: September 19, 2024 Billing Provider: PERLITA MOORE MD Common Visit Codes: [id number] DISCH DAY >30min PERLITA MOORE MD September 19, 2024 10:35
--- NOTE | 2024-09-19 15:56 | DVHDS ---
DATE OF DISCHARGE: 09/19/2024 HISTORY OF PRESENT ILLNESS: The patient is a 64-year-old gentleman who was admitted with history of UTI and failure to thrive and has previous history of congestive heart failure, atrial fibrillation, BPH, and gallstones. HOSPITAL COURSE: The patient had evidence of UTI. His white count was elevated to 11.5. He was placed on IV Invanz. The patient's urine culture grew less than 10,000 colonies of Citrobacter and 20,000 colonies of Enterococcus faecalis. The patient's blood cultures are negative. His Doran catheter was changed. The patient will now be discharged. Echocardiogram done showed ejection fraction of 45%. The patient will now be discharged to [facility] under Dr. Angel Mcclain, who is his doctor at the shelter. The patient will be on medications as per med reconciliation. FINAL DIAGNOSES: * UTI with likely sepsis secondary to Citrobacter and Enterococcus. * Chronic systolic/diastolic heart failure. * Questionable atrial fibrillation. * BPH. * Gallstones. The patient had a CT of abdomen and pelvis that showed evidence of cholelithiasis with constipation and moderate prostatic enlargement and DJD of the spine. I have talked to Dr. Mcclain about following up on a UA and urine culture after antibiotics are completed. Time spent in discharge planning and review of plan with the patient and customer support consultant was 39 minutes. MD YOLANDA Middleton/SHARMAINE TID: [id number] RECEIPT: [id number]
== END 2024-09-19 18:18 | DRG 698 ==
LOC: ER 19:33 → EDBD 19:33 → OVERFLOW 21:28 → EAST 09-15 16:57 → TELE-EAST 09-16 01:03
PROVIDERS: ADMIT Internal Medicine; ATTEND Internal Medicine
DX: T83.518A Infection and inflammatory reaction due to other urinary catheter, initial encounter (principal); A41.81 Sepsis due to Enterococcus; I50.42 Chronic combined systolic (congestive) and diastolic (congestive) heart failure; J98.11 Atelectasis; I48.91 Unspecified atrial fibrillation; R62.7 Adult failure to thrive; K80.20 Calculus of gallbladder without cholecystitis without obstruction; N40.0 Benign prostatic hyperplasia without lower urinary tract symptoms; Z20.822 Contact with and (suspected) exposure to COVID-19; Z79.899 Other long term (current) drug therapy; Z68.27 Body mass index [BMI] 27.0-27.9, adult; M47.9 Spondylosis, unspecified
CPT/HCPCS: 36415; 71045; 74176; 80048; 80053; 80074; 80202; 81001; 83605; 85025; 85610; 85730; 87040; 87086; 87088; 87186; 87426; 87804; 93306; 96360; 97110; 97163; 97530; G0378; J1335